=== PATIENT | female | born 1985 | race Hispanic/Latino ===

== ENCOUNTER 2018-06-13 09:32 | Outpatient (CLI) | payer OTHER | END 2018-06-13 09:33 | disposition home or self-care (01) | LOC: BICULT 09:32 | PROVIDERS: ATTEND Family Medicine | DX: R10.32 Left lower quadrant pain (principal); K80.20 Calculus of gallbladder without cholecystitis without obstruction | CPT/HCPCS: 76700 ==

== ENCOUNTER 2018-07-05 18:50 | Emergency (ER) | payer OTHER ==
[2018-07-05] MEDS ORDERED: Ondansetron HCl/PF 4 MG/2 ML Vial ONE (19:17)
[2018-07-05 19:18] LABS: Bilirubin Negative (Negative); Blood, Urine Negative (Negative); Clarity TURBID (Clear); Glucose, Urine (Dipstick) Negative (Negative); Leukocyte Negative (Negative); Nitrite Negative (Negative); Protein, Urine (Dipstick) Negative (Neg-Trace); Specific Gravity, Urine 1.022 (1.002-1.036); pH, Urine 7.5 (5.0-9.0)
[2018-07-05 19:22] LABS: #Basophils 0.1 thou/uL (0.0-0.2); #Eosinphils 0.2 thou/uL (0.0-0.7); #Lymphocytes 2.6 thou/uL (1.20-3.40); #Monocytes 0.6 thou/uL (0.11-0.59); %Basophils 0.9 % (0.0-1.0); %Eosinophils 2.2 % (0.0-10.0); %Lymphocytes 30.6 % (21.0-51.0); %Monocytes 6.9 % (0.0-10.0); %Neutrophils 59.3 % (42.0-75.0); Hemoglobin 12.2 g/dL (12.0-16.0); Mean Corpuscular HGB CONC 33.8 g/dL (32.0-36.0); Mean Corpuscular Hemoglobin 29.4 pg (27.0-31.0); Mean Corpuscular Volume 86.9 fL (78.0-98.0); Mean Platelet Volume 6.9 fL (7.4-10.4); Platelet Count 246 thou/uL (130-400); RBC Distribution Width 11.8 % (11.5-14.5); Red Blood Cell (RBC) Count 4.14 mill/uL (4.20-5.40); White Blood Cell (WBC) Count 8.4 thou/uL (4.8-10.8)
[2018-07-05 19:22] LABS: Pregnancy Test - Urine (BHCG) Negative (Negative); Pregu Control Background? CLEAR/WHITE (CLR/WHITE); Pregu Control Bar Appear? YES (CONTROL BAR); Specific Gravity 1.022 (1.002-1.036)
[2018-07-05 19:43] LABS: ALT (SGPT) 14 U/L (8-55); AST (SGOT) 16 U/L (5-34); Albumin 4.5 g/dL (3.5-5.0); Alkaline Phosphatase 73 U/L (40-150); Anion Gap 11 mmol/L (10-20); BUN (Urea Nitrogen) 11 mg/dL (7.0-18.7); Bilirubin, Total 0.5 mg/dL (0.2-1.2); Calc. Creatinine Clearance 0 mL/min (70-130); Calcium 9.2 mg/dL (7.8-10.44); Carbon Dioxide 25 mmol/L (22-29); Chloride 106 mmol/L (98-107); Estimated GFR-MDRD Greater than 90; Globulin 3.2 g/dL (2.4-3.5); Glucose 85 mg/dL (70-105); Lipase 26 U/L (8-78); Potassium 3.8 mmol/L (3.5-5.1); Protein, Total 7.7 g/dL (6.0-8.3); Sodium 138 mmol/L (136-145)
--- NOTE | 2018-07-05 21:07 | CT ---
CT ABDOMEN AND PELVIS WITH IV AND ORAL CONTRAST: 07/05/18 HISTORY: Abdomen and pelvic pain. COMPARISON: 10/25/14. FINDINGS: Lung bases are clear. Hyperdense stones are apparent within the gallbladder lumen. A 0.3 cm calculus is evident within a nondilated calyx at the inferior pole right kidney. No evidence of bowel obstruct ion. The appendix is not inflamed. Urinary bladder is unremarkable. Centered at the left rectus abdom inis muscle just above the level of the bladder dome, a focal area of mass-like thickening measures u p to 3.1 cm. It is more pronounced than on the 10/25/14 exam. On that study, there was an area of mas s and inflammation at the right lower abdominal wall. Follicles arise from the ovaries. 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 Small nonobstructing right renal calculus. Cholelithiasis. POS: ERICK
== END 2018-07-05 22:24 ==
LOC: ERS 18:50
DX: N80.9 Endometriosis, unspecified (principal)
CPT/HCPCS: 36415; 74177; 80053; 81003; 81025; 83690; 85025; 96374; 96375; J2270; J2405

== ENCOUNTER 2018-07-22 08:02 | Outpatient (CLI) | payer OTHER | END 2018-07-22 08:03 | disposition home or self-care (01) | LOC: BICULT 08:02 | PROVIDERS: ATTEND Family Medicine | DX: R19.04 Left lower quadrant abdominal swelling, mass and lump (principal) | CPT/HCPCS: 76856; 93976 ==

== ENCOUNTER 2018-10-07 06:14 | Day surgery (SDC) | payer OTHER ==
[2018-10-06 10:44] VITALS: BMI 36.2
[2018-10-07 08:36] LABS: #Eosinphils 0.2 thou/uL (0.0-0.7); #Lymphocytes 2.5 thou/uL (1.20-3.40); #Monocytes 0.4 thou/uL (0.11-0.59); #Neutrophils 4.6 thou/uL (1.40-6.50); %Basophils 0.3 % (0.0-1.0); %Eosinophils 2.1 % (0.0-10.0); %Monocytes 5.6 % (0.0-10.0); Hemoglobin 12.3 g/dL (12.0-16.0); Mean Corpuscular HGB CONC 34.5 g/dL (32.0-36.0); Mean Corpuscular Hemoglobin 29.8 pg (27.0-31.0); Mean Corpuscular Volume 86.2 fL (78.0-98.0); Mean Platelet Volume 7.2 fL (7.4-10.4); Platelet Count 260 thou/uL (130-400); RBC Distribution Width 12.1 % (11.5-14.5); Red Blood Cell (RBC) Count 4.12 mill/uL (4.20-5.40); White Blood Cell (WBC) Count 7.7 thou/uL (4.8-10.8)
[2018-10-07 08:55] LABS: ALT (SGPT) 16 U/L (8-55); AST (SGOT) 16 U/L (5-34); Albumin 4.2 g/dL (3.5-5.0); Alkaline Phosphatase 69 U/L (40-150); Anion Gap 8 mmol/L (10-20); BUN (Urea Nitrogen) 9 mg/dL (7.0-18.7); Bilirubin, Total 0.5 mg/dL (0.2-1.2); Calc. Creatinine Clearance 177 mL/min (70-130); Carbon Dioxide 26 mmol/L (22-29); Chloride 107 mmol/L (98-107); Estimated GFR-MDRD Greater than 90; Globulin 3.3 g/dL (2.4-3.5); Glucose 83 mg/dL (70-105); Protein, Total 7.5 g/dL (6.0-8.3); Sodium 137 mmol/L (136-145)
[2018-10-07] MEDS ORDERED: Ketorolac Tromethamine 30 MG/ML VIAL ONE ×2 (09:38→17:57)
[2018-10-07] MEDS ORDERED: CEFAZOLIN 2 GM/50 ML BAG ONE (09:38)
[2018-10-07] MEDS ORDERED: PROPOFOL 200 MG/20 ML VIAL ONE (11:10)
[2018-10-07] MEDS ORDERED: Ondansetron PF 4 MG/2 ML Vial ONE (11:10)
[2018-10-07] MEDS ORDERED: Dexamethasone 20 MG/5 ML VIAL ONE (11:10)
[2018-10-07] MEDS ORDERED: Lidocaine 1% PF 5 ML VIAL ONE (11:10)
[2018-10-07] MEDS ORDERED: Bupivacaine/Epinephrine 0.25% 30 ML VIAL ONE ×2 (12:56→14:19)
[2018-10-07] MEDS ORDERED: Midazolam HCl 2 mg/2 ml Vial ONE (12:58)
[2018-10-07] MEDS ORDERED: Fentanyl 250 MCG/5 ML VIAL ONE (12:58)
[2018-10-07] MEDS ORDERED: Fentanyl 100 MCG/2 ML VIAL ONE (15:40)
[2018-10-07] MEDS ORDERED: Promethazine HCl 25 MG/ML VIAL ONE (15:40)
[2018-10-07] MEDS ORDERED: HYDROcodone/Acetaminophen 5/325 mg Tablet ONE (18:34)
--- NOTE | 2018-10-11 14:44 | OP ---
DATE OF PROCEDURE: 10/07/2018 PROCEDURE PERFORMED: Laparoscopic cholecystectomy and excision of scar endometrioma. PREOPERATIVE DIAGNOSES: Cholelithiasis and scar endometrioma. POSTOPERATIVE DIAGNOSES: Cholelithiasis and scar endometrioma. HISTORY: Ms. Galdamez is a 33-year-old woman with a known history of scar endometrioma, status post excision at the right Pfannenstiel location. She now presents with a recurrent mass in the left Pfannenstiel location consistent with another scar endometrioma. She also has gallstones on imaging and a history of postprandial pain and nausea initiated by fatty food intake. Recommendation was made to proceed with laparoscopic cholecystectomy and excision of scar endometrioma under the same anesthesia. FINDINGS: Gallbladder with multiple stones and small cystic duct. Large firm mass in the subcutaneous tissues and extending through the anterior rectus sheath in the left lower quadrant consistent with endometrioma. DESCRIPTION OF PROCEDURE: After informed consent was obtained and appropriate preoperative antibiotics were administered, the patient was taken to the operating room. She was placed in supine position and general endotracheal anesthesia was administered. She was prepped and draped in a standard sterile fashion and local anesthesia was infused through the skin and subcutaneous tissues at the level of the umbilicus. A transverse skin incision was made and the fascia was elevated. A Veress needle was placed into the abdominal cavity without difficulty and carbon dioxide gas insufflated to an intraabdominal pressure of 15, which the patient tolerated well. Opening pressure was less than 5. The Veress needle was then withdrawn and a ClearView port was advanced under direct laparoscopic vision into the abdominal cavity, which was carefully examined. There was no evidence of Veress needle or trocar injury. There were some omental adhesions in the lower midline , well away from the areas of the trocar, but no significant adhesions in the upper abdomen. Local anesthesia was infused through the skin and subcutaneous tissues at the epigastric, right upper quadrant, and right lateral abdominal sites. Skin incisions were made and trocars were placed under direct laparoscopic vision. The fundus of the gallbladder was retracted superiorly and the infundibulum identified, grasped, and retracted laterally. The serosa was stripped inferiorly at the level of the neck of the gallbladder and the cystic duct and artery were dissected free circumferentially and traced inferiorly to the insertion in the gallbladder. A critical view of safety was obtained and the cystic duct and artery were clipped and divided between clips. The gallbladder was then dissected free of the gallbladder bed using hook electrocautery. The cystic duct and artery stumps were examined before the gallbladder was completely removed and the clips were seen to be clearly across both these structures and there were no bleeding and no leakage of bile from the area. The gallbladder was then completely removed from the gallbladder bed, placed into an EndoCatch bag, and drawn out through the epigastric incision after crushing and removing multiple stones. The epigastric trocar was removed and the operative site was easily irrigated clear. Hemostasis was verified. The epigastric trocar was then removed and the fascia was reapproximated with 0 Vicryl suture on GraNee needle with excellent technical result. The right upper quadrant and right lateral trocar were then removed and hemostasis verified. Carbon dioxide gas was allowed to desufflate through the umbilical trocar, which was then removed. Additional local anesthesia was infused for postoperative pain control and the skin incisions were closed with 4-0 Monocryl subcuticular sutures and Dermabond. Attention was then turned to the left lower quadrant abdominal wall mass. Local anesthesia was infused through the skin and subcutaneous tissues overlying the mass and dissection carried down to the mass, which was dissected free circumferentially. This was firm and fibrotic in appearance and well defined. This was dissected free of the surrounding tissues down to the anterior rectus sheath. It extended through the anterior rectus sheath. It was dissected free of the underlying muscles and the mass marked for orientation and sent to pathology. The wound was irrigated and hemostasis verified. The anterior rectus sheath was then reapproximated with absorbable suture with excellent technical result, and the skin and subcutaneous tissues were closed with 3-0 Monocryl subcutaneous and 4-0 subcuticular Monocryl sutures. Dermabond dressings were placed and pressure dressing was placed after the Dermabond was dry. The patient was extubated and taken to Recovery in good condition. ESTIMATED BLOOD LOSS: Minimal. COMPLICATIONS: There were no complications. SPECIMEN: Gallbladder and contents, and left lower quadrant mass. Job ID: [id number] [facility]
--- NOTE | 2018-10-26 06:14 | PQF ---
[facility] POST DISCHARGE CLINICAL DOCUMENTATION IMPROVEMENT CLARIFICATION FORM l Todays Date: 10/26/18 l Patients Name EMMANUELLE KAY l l Admit Date 10/07/18 l Disch Date 10/07/18 Thumb Sewer Name Luisito Lyons Email: [email or web address]: [phone] To be completed by Thumb Sewer: Present Clinical Indicators - Signs / Symptoms Results and Location in Medical Record [ ] Documentation of: [ ] [ ] Documentation of: [ ] [ ] Documentation of: [ ] [ ] Documentation of: [ ] [ ] Risks [ ] [ ] [ ] Treatment [ ] ABDOMINAL WALL ENDOMETRIOMA QUERY FOR SIZE OF EXCISED LESION WITH MARGINS [ ] [ ] To be completed by Physician: LUZ MARIA ROSALES The documentation in this patients record requires clarification to ensure coding compliance and accuracy. Check the appropriate box and include in your discharge summary. [ ] [ ] [ ] [ ] Please check this box if this does not apply to this patient [ ] Unable to determine [ ] Other diagnosis: Review the following information and exercise your independent professional judgment in responding to the clarification. Based upon the clinical findings, risk factors, and treatment, please clarify if you are treating one of the above probable or suspected diagnoses. Physician Signature: Date Time MTDD
== END 2018-10-07 19:05 ==
LOC: SDC 06:14
PROVIDERS: ATTEND Surgery
PROC: 0KBK0ZZ Excision of Right Abdomen Muscle, Open Approach (ICD-10-PCS; principal; 2018-10-07)
PROC: 0FT44ZZ Resection of Gallbladder, Percutaneous Endoscopic Approach (ICD-10-PCS; principal; 2018-10-07)
DX: K80.10 Calculus of gallbladder with chronic cholecystitis without obstruction (principal); N80.8 Other endometriosis; Z98.51 Tubal ligation status; Z98.890 Other specified postprocedural states
CPT/HCPCS: 80053; 85025; 88304; 88305; 96374; J0131; J1100; J1885; J2001; J2250; J2405; J2550; J2704; J3010